=== PATIENT | male | born 1980 | race Caucasian/White ===

== ENCOUNTER 2017-08-08 16:07 | Emergency (ER) | payer MEDICAID, OTHER ==
[2017-08-08 16:59] VITALS: BP 117/83
[2017-08-08] MEDS ORDERED: Ketorolac INJ* 60 MG/2 ML VIAL IM ONE (17:12)
--- NOTE | 2017-08-08 17:43 | RAD ---
HISTORY: Right hip and pelvic pain COMPARISONS: None VIEWS: 3, Frontal view of the pelvis with frontal and frog-leg views of the right hip FINDINGS: BONE DENSITY: Normal. BONES: There is no displaced fracture. JOINTS: There is minimal osteophytic spurring of the femoral head. ALIGNMENT: There is no dislocation. SOFT TISSUES: Unremarkable. OTHER FINDINGS: None. IMPRESSION: NO ACUTE OSSEOUS INJURY. IF SYMPTOMS PERSIST, RECOMMEND REPEAT IMAGING.
--- NOTE | 2017-08-08 19:05 | UC ---
Kierra Hinkle Rebecca, scribed for Seymour Miller MD on 08/08/17 at 1718 . Lower Extremity/Ankle HPI - HPI Summary HPI Summary: Patient is a 36 y/o M who presents to [facility] c/o right inguinal and hip pain. Sx began on Sunday (3 days ago) after doing heavy lifting. Patient reports at this time he felt a pop in the back but that there is no back pain, reporting the only pain is in the inguinal area. Pain is currently moderate, ranked 4/10 and characterized as cramping. Sx aggravated by standing and stretching the back , alleviated by crunching forward. Denies any other complaints. PMHx chronic back pain. - History of Current Complaint Chief Complaint: UCLowerExtremity Stated Complaint: GROIN PAIN Time Seen by Provider: 08/08/17 17:06 Hx Obtained From: Patient Onset/Duration: Lasting Days - 3 days, Still Present Severity Currently: Moderate Pain Intensity: 4 Pain Scale Used: 0-10 Numeric Aggravating Factor(s): Other - Standing and stretching the back Alleviating Factor(s): Other - Crunching forward - Allergies/Home Medications Allergies/Adverse Reactions: Allergies Allergy/AdvReac Type Severity Reaction Status Date / Time MS Amoxicillin [Amoxicillin] Allergy Severe Anaphylatic Verified 08/08/17 16:50 Shock MS Ciprofloxacin [From Cipro] Allergy Severe Hallucinati Verified 08/08/17 16:50 ons MS Penicillins [Penicillins] Allergy Severe Anaphylatic Verified 08/08/17 16:50 Shock PMH/Surg Hx/FS Hx/Imm Hx - Additional Past Medical History Additional PMH: PMHx: Chronic back pain No PMHx: HTN, COPD, asthma, DM - Surgical History Surgical History: Yes Surgery Procedure, Year, and Place: FIXATION OF SCAPHOID FX. RIGHT WRIST. LEFT KNEE SX X2. wisdom teeth - Family History Known Family History: Positive: Unknown - adopted - Social History Alcohol Use: Rare Substance Use Type: None Smoking Status (MU): Former Smoker Have You Smoked in the Last Year: No When Did the Patient Quit Smoking/Using Tobacco: > 3 years ago Review of Systems Constitutional: Negative Skin: Negative Eyes: Negative ENT: Negative Respiratory: Negative Cardiovascular: Negative Gastrointestinal: Negative Genitourinary: Negative Motor: Negative Neurovascular: Negative Musculoskeletal: Other: - Back pain Neurological: Negative Psychological: Negative All Other Systems Reviewed And Are Negative: Yes Physical Exam - Summary Physical Exam Summary: VITAL SIGNS: Reviewed. GENERAL: ~Patient is a well developed and nourished male who is lying comfortable in the stretcher. ~Patient is not in any acute respiratory distress. HEAD AND FACE: Normocephalic EYES: PERRLA, EOMI x 2. EARS: Hearing grossly intact. MOUTH: Oropharynx within normal limits. NECK: Supple, trachea is midline, no adenopathy, no JVD, no carotid bruit. CHEST: Symmetric, no tenderness at palpation LUNGS: Clear to auscultation bilaterally. No wheezing or crackles. CVS: Regular rate and rhythm, S1 and S2 present, no murmurs or gallops appreciated. ABDOMEN: Soft, non-tender. Bowel sounds are normal. No abdominal abnormal pulsations. EXTREMITIES: Full ROM in all major joints, no edema, no cyanosis or clubbing. FROM of the hip with slight tenderness in the inguinal area. There is no inguinal hernia. NEURO: Alert and oriented x 3. No acute neurological deficits. Speech is normal and follows commands. SKIN: Dry and warm Inguinal: Both testicles are descended, penis is uncircumcised with no discharge. Good cremasteric reflex. Triage Information Reviewed: Yes Vital Signs: Initial Vital Signs Temp 99.3 F 08/08/17 16:51 Pulse 75 08/08/17 16:51 Resp 20 08/08/17 16:51 BP 117/83 08/08/17 16:51 Pulse Ox 99 08/08/17 16:51 Vital Signs Reviewed: Yes Diagnostics - Radiology Hip/Pelvis XR Xray Interpretation: No Acute Changes - NO ACUTE OSSEOUS INJURY. IF SYMPTOMS PERSIST, RECOMMEND REPEAT IMAGING. Physician reviewed this radiology report. Radiology Interpretation Completed By: Radiologist Re-Evaluation - Re-Evaluation First Eval Re-Evaluation Time: 17:52 Change: Improved Comment: Discussed XR results and D/C plan with the patient. Answered questions. Lower Extremity Course/Dx - Course Course Of Treatment: Patient is a 36 y/o M who presents to [facility] c/o right inguinal and hip pain. Sx began on Sunday (3 days ago) after doing heavy lifting. Patient reports at this time he felt a pop in the back but that there is no back pain, reporting the only pain is in the inguinal area. Pain is currently moderate, ranked 4/10 and characterized as cramping. Sx aggravated by standing and stretching the back, alleviated by crunching forward. Denies any other complaints. PMHx chronic back pain. Hip/Pelvis XR reveals no acute findings. He was given Toradol which improved sx. Pt will be D/C to home with Dx of inguinal pain. He udnerstands and agrees. Allergies noted. - Differential Dx/Diagnosis Provider Diagnoses: Inguinal pain. Discharge - Sign-Out/Discharge Documenting (check all that apply): Discharge - Discharge Plan Condition: Stable Disposition: HOME Referrals: Pooja Qureshi [Primary Care Provider] - The documentation as recorded by the Kierra gu Rebecca accurately reflects the service I personally performed and the decisions made by me, Seymour Miller MD.
== END 2017-08-08 18:00 | disposition home or self-care (01) ==
LOC: UCEAST 16:07
DX: R10.31 Right lower quadrant pain (principal); M25.551 Pain in right hip; M54.9 Dorsalgia, unspecified; Z88.1 Allergy status to other antibiotic agents; Z88.0 Allergy status to penicillin; Z87.891 Personal history of nicotine dependence
CPT/HCPCS: 96372; 99212; G0463; J1885

== ENCOUNTER 2017-08-12 09:25 | Emergency (ER) | payer SELFPAY ==
[2017-08-12 09:37] VITALS: BP 130/83
--- NOTE | 2017-08-12 10:16 | UC ---
Back Pain HPI - HPI Summary HPI Summary: Pain in right side of back all of the way up his spine, and pain in right groin- --both feel very tight and in spasm - History of Current Complaint Chief Complaint: UCLowerExtremity Stated Complaint: NUMBNESS IN THIGH, HIP PAIN Time Seen by Provider: 08/12/17 09:51 Hx Obtained From: Patient Onset/Duration: Gradual Onset, Lasting Days Timing: Constant Severity Initially: Moderate Severity Currently: Moderate Pain Intensity: 7 Pain Scale Used: 0-10 Numeric Back Pain: Is Diffuse Character: Aching, Spasmodic Aggravating Factor(s): Movement, Lifting, Bending Alleviating Factor(s): Nothing Associated Signs And Symptoms: Positive: Tingling - anterior right thigh - Allergies/Home Medications Allergies/Adverse Reactions: Allergies Allergy/AdvReac Type Severity Reaction Status Date / Time amoxicillin Allergy Anaphylatic Verified 08/12/17 09:39 Shock ciprofloxacin [From Cipro] Allergy Hallucinati Verified 08/12/17 09:39 ons Penicillins Allergy Anaphylatic Verified 08/12/17 09:39 Shock PMH/Surg Hx/FS Hx/Imm Hx Previously Healthy: No - back pain - Surgical History Surgical History: Yes Surgery Procedure, Year, and Place: FIXATION OF SCAPHOID FX. RIGHT WRIST. LEFT KNEE SX X2. wisdom teeth - Family History Known Family History: Positive: Unknown - adopted - Social History Occupation: Employed Full-time - automobile painter Lives: With Family Alcohol Use: Rare Substance Use Type: None Smoking Status (MU): Former Smoker Have You Smoked in the Last Year: No When Did the Patient Quit Smoking/Using Tobacco: > 3 years ago Review of Systems Constitutional: Negative Skin: Negative Eyes: Negative ENT: Negative Respiratory: Negative Cardiovascular: Negative Gastrointestinal: Negative Genitourinary: Negative Motor: Negative Neurovascular: Negative Musculoskeletal: Myalgia - right side of spine and right groin Neurological: Negative Psychological: Negative Is Patient Immunocompromised?: No All Other Systems Reviewed And Are Negative: Yes Physical Exam Triage Information Reviewed: Yes Appearance: Well-Nourished, Ill-Appearing, Pain Distress - mild Vital Signs: Initial Vital Signs Temp 98.8 F 08/12/17 09:31 Pulse 95 08/12/17 09:31 Resp 18 08/12/17 09:31 BP 130/83 08/12/17 09:31 Pulse Ox 100 08/12/17 09:31 Vital Signs Reviewed: Yes Eye Exam: Normal Eyes: Positive: Conjunctiva Clear ENT Exam: Normal ENT: Positive: Normal ENT inspection, Hearing grossly normal. Negative: Trismus , Muffled voice, Hoarse voice Dental Exam: Normal Neck exam: Normal Neck: Positive: Supple, Nontender, No Lymphadenopathy Respiratory Exam: Normal Respiratory: Positive: Chest non-tender, No respiratory distress, No accessory muscle use Cardiovascular Exam: Normal Cardiovascular: Positive: RRR, Pulses Normal, Brisk Capillary Refill Musculoskeletal Exam: Normal Musculoskeletal: Positive: Strength Intact, ROM Intact, No Edema Neurological Exam: Normal Neurological: Positive: Alert, Muscle Tone Normal Psychological Exam: Normal Psychological: Positive: Normal Response To Family Skin Exam: Normal Back Pain Course/Dx - Course Course Of Treatment: add muscle relaxor and follow with pcp for advanced imaging should pain fail to resolve - Differential Dx/Diagnosis Provider Diagnoses: muscle spasm right groin and right back Discharge - Sign-Out/Discharge Documenting (check all that apply): Discharge - Discharge Plan Condition: Stable Disposition: HOME Prescriptions: Cyclobenzaprine TAB* [Flexeril 10 MG TAB*] 10 mg PO TID PRN #30 tab PRN Reason: muscle spasm Patient Education Materials: Muscle Spasm (ED) Forms: *Work Release Referrals: Pooja Qureshi [Primary Care Provider] - 1 Day - Billing Disposition and Condition Condition: STABLE Disposition: HOME
== END 2017-08-12 10:30 | disposition home or self-care (01) ==
LOC: UCEAST 09:25
DX: M62.830 Muscle spasm of back (principal); M62.838 Other muscle spasm; Z88.1 Allergy status to other antibiotic agents; Z88.0 Allergy status to penicillin; Z87.891 Personal history of nicotine dependence
CPT/HCPCS: 99212; G0463

== ENCOUNTER 2018-02-02 20:42 | Emergency (ER) | payer SELFPAY ==
[2018-02-02 20:59] VITALS: BP 123/83
--- NOTE | 2018-02-02 21:06 | UC ---
Hand/Wrist HPI - HPI Summary HPI Summary: 37 y/o male presents to the urgent care c/o Rt wrist pain and swelling since 01/25. 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 He also states about 10 -15 years ago he has a severe fracture of RT wrist and on and of he develops wrist pain. He denies any recent injuries, other than he sometimes has to do heavy lifting or repetitive movement w/ his hands. Pain is 4/10 w/ movement and swelling on the lateral side of the Rt wrist. At times he feels some numbness and tingling over the fingers. Pt denies fever, SOB, chest pain, abdominal pain , N/V/D. Pt is also concern about a bump he feels on top os his scalp which is non painful. Pt has no taken Mediations to alleviate symptoms. - History Of Current Complaint Chief Complaint: UCUpperExtremity Stated Complaint: WRIST INJURY Time Seen by Provider: 02/02/18 21:04 Hx Obtained From: Patient Onset/Duration: Gradual Onset, Lasting Weeks - 1 week, Still Present Severity Initially: Mild Severity Currently: Moderate Pain Intensity: 4 Pain Scale Used: 0-10 Numeric Character Of Pain: Dull, Aching Aggravating Factor(s): Movement, Lifting, Abduction, Pulling Alleviating Factor(s): Rest, Ice, OTC Meds Associated Signs And Symptoms: Positive: Swelling - lateral side of Rt wrist, Numbness/Tingling - at times. Negative: Redness, Bruising, Weakness Related History: Dominant Hand Right - Allergies/Home Medications Allergies/Adverse Reactions: Allergies Allergy/AdvReac Type Severity Reaction Status Date / Time amoxicillin Allergy Anaphylatic Verified 08/12/17 09:39 Shock ciprofloxacin [From Cipro] Allergy Hallucinati Verified 08/12/17 09:39 ons Penicillins Allergy Anaphylatic Verified 08/12/17 09:39 Shock Home Medications: Home Medications Flaxseed 340 gm PO DAILY 02/02/18 [History Confirmed 02/02/18] Potassium Phosphate,Monobasic [Potassium Phosphate] 1 gm PO DAILY 02/02/18 [ History Confirmed 02/02/18] PMH/Surg Hx/FS Hx/Imm Hx Previously Healthy: Yes - Pt denies PMHX - Surgical History Surgical History: Yes Surgery Procedure, Year, and Place: FIXATION OF SCAPHOID FX. RIGHT WRIST. LEFT KNEE SX X2. wisdom teeth - Family History Known Family History: Positive: Unknown - adopted - Social History Occupation: Employed Full-time Lives: With Family Alcohol Use: Occasionally Substance Use Type: None Smoking Status (MU): Former Smoker Have You Smoked in the Last Year: No When Did the Patient Quit Smoking/Using Tobacco: > 3 years ago Review of Systems Constitutional: Negative Skin: Other - Rt wrist swelling on the lateral side Eyes: Negative ENT: Negative Respiratory: Negative Cardiovascular: Negative Gastrointestinal: Negative Genitourinary: Negative Motor: Negative Neurovascular: Negative Musculoskeletal: Decreased ROM - Rt wrist, Other: - Rt wirst pain Neurological: Numbness - on the Rt fingers at times Psychological: Negative Is Patient Immunocompromised?: No All Other Systems Reviewed And Are Negative: Yes Physical Exam - Summary Physical Exam Summary: Vital Signs Reviewed: Yes General: Well-Appearing, No Pain Distress, Well-Nourished male w/o any apparent distress Eyes: Positive: Conjunctiva Clear - PERRLA, EOMI ENT: Positive: Normal ENT inspection, Hearing grossly normal, Pharynx normal, TMs normal, Uvula midline Neck: Positive: Supple, Nontender, No Lymphadenopathy Respiratory: Positive: Chest non-tender, Lungs clear, Normal breath sounds, No respiratory distress Cardiovascular: Positive: RRR, No Murmur, Pulses Normal, Brisk Capillary Refill Abdomen Description: Positive: Nontender, No Organomegaly, Soft. Negative: CVA Tenderness (R), CVA Tenderness (L) Bowel Sounds: Positive: Present Musculoskeletal: Positive: Strength Intact, Other: Neurological Exam: Normal Musculoskeletal: Positive: Wrist: the R wrist is without obvious asymmetry or deformity when compared to the L wrist. No surface trauma, open wounds, moderate swelling on lateral side , no obvious deformity. No overlying erythema or warmth. No bony crepitus. Point tenderness over the thenar eminence and lateral side of wrist. No scaphoid fullness or tenderness to direct palpation or axial load. Decreased ROM due to pain. Motor/sensory function of ulnar, radial, median nerves intact. Ulnar and radial pulses intact. positive Phalen s sign .. Positive Lazarus test. Pt w/ a scar in the ventral side of Rt wrist rpom previous surgery. Psychological Exam: Normal Skin Exam: Normal. positive brown atypical mole in the top of mid scalp w/ irregular boders about 1.0 x1.5 cm in size, non tender to palpation, no discharge seen Triage Information Reviewed: Yes Vital Signs: Initial Vital Signs Temp 98.8 F 02/02/18 20:52 Pulse 83 02/02/18 20:52 Resp 16 02/02/18 20:52 BP 123/83 02/02/18 20:52 Pulse Ox 100 02/02/18 20:52 Hand/Wrist Course/Dx - Course Course Of Treatment: 37 y/o male presents to the urgent care c/o Rt wrist pain and swelling since 01/25/2018. 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 He also states about 10-15 years ago he has a severe fracture of RT wrist and on and of he develops wrist pain. He denies any recent injuries, other than he sometimes has to do heavy lifting or repetitive movement w/ his hands. Pain is 4 /10 w/ movement and swelling on the lateral side of the Rt wrist. At times he feels some numbness and tingling over the fingers. Pt denies fever, SOB, chest pain, abdominal pain, N/V/D. Pt is also concern about a bump he feels on top os his scalp which is non painful. Pt has no taken Mediations to alleviate symptoms. Hx obtained.Pt w/ Phalen test and Fielkestein test positve of Rt wrist and an atypical mole in the top of scalp on exmination. RTwrist X-ray ordered. Impression: There was no fracture, dislocation soft tissue observe. Dr Salamanca agreed w/ Radiology interpretation. Pt will be notifed of final radiology reading. Pts wrist immobilized with a cock up splint. Advised RICE: Rest, Ice, elevation. Pt Rx Ibuporfen PO for pain. There was no neurovascular compromise after splint placed by nurse. Pt given referral w. Orthopedic Dr Dill for further management if not improvment of symptoms. Also given referral w/ Construction Pit Worker Dr Coronel for evaluation and treatment of atypical scalp mole. D/C instrcutions explained. Pt understood and agreed w/ plan of care. - Differential Dx/Diagnosis Differential Diagnosis/HQI/PQRI: Cellulitis, Contusion, Fracture, Sprain, Strain , Tendonitis, Tenosynovitis, Other - carpal tunnel syndrome Provider Diagnoses: 1- Acute RT wrist pain and swelling. 2- Carpel tunnel syndrome. 3- Quervain's tenosynovitis. 4- Atypical scalp mole Discharge - Sign-Out/Discharge Documenting (check all that apply): Patient Departure - D/c home All imaging exams completed and their final reports reviewed: No - Discharge Plan Condition: Stable Disposition: HOME Prescriptions: Ibuprofen TAB* [Motrin TAB* 800 MG] 800 mg PO Q6H PRN #30 tab PRN Reason: Pain Patient Education Materials: Wrist Fracture in Adults (ED), De Quervain Disease (ED), Atypical Mole (ED) Referrals: Pooja Qureshi [Primary Care Provider] - 3 Days Carolyn Coronel [Medical Doctor] - 3 Days Isidro Dill MD [Medical Doctor] - 1 Week Additional Instructions: 1-Please take medications as directed to alleviate pain and swelling. You may be developing Carpal tunnel syndrome and Quervain's tenosynovitis 2-Please immerse your wrist in ice water to alleviate swelling and pain. keep your wrist immobilized with the splint. Avoid heavy lifting or repetitive movements 3- Please f/u with Orthopedic Dr Dill in 1 week is not improvement of symptoms for further evaluation and treatment. 4- Please f/u w/ Construction Pit Worker Dr Coronel for further evaluation and treatment in your scalp mole - Billing Disposition and Condition Condition: STABLE Disposition: Home
--- NOTE | 2018-02-03 10:42 | RAD ---
INDICATION: Right wrist pain and swelling COMPARISON: CT of the wrist March 27, 2013 TECHNIQUE: 3 views right wrist. REPORT: Overlying the distal right radial metaphysis is a faint 1 cm lucency that corresponds to the benign-appearing lesion seen on the March 27, 2013 CT examination. There is a nonunion fracture through the waist of the scaphoid with sclerotic change and subchondral lucencies surrounding the fracture site. IMPRESSION: 1. 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 2. Faintly defined lucency at the distal radial metaphysis corresponds to the same benign appearing bone lesion seen on the prior CT examination. 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 If the patient's symptoms persist, follow-up imaging is recommended. R2
--- NOTE | 2018-02-04 08:56 | UC ---
- EKG/XRAY/CT Xray Comments: Wet read not on chart-follow up appropriate Discharge - Sign-Out/Discharge Documenting (check all that apply): Post-Discharge Follow Up All imaging exams completed and their final reports reviewed: Yes - Discharge Plan Condition: Stable Disposition: HOME Prescriptions: Ibuprofen TAB* [Motrin TAB* 800 MG] 800 mg PO Q6H PRN #30 tab PRN Reason: Pain Patient Education Materials: Wrist Fracture in Adults (ED), De Quervain Disease (ED), Atypical Mole (ED) Referrals: Pooja Qureshi [Primary Care Provider] - 3 Days Carolyn Coronel [Medical Doctor] - 3 Days Isidro Dill MD [Medical Doctor] - 1 Week Additional Instructions: 1-Please take medications as directed to alleviate pain and swelling. You may be developing Carpal tunnel syndrome and Quervain's tenosynovitis 2-Please immerse your wrist in ice water to alleviate swelling and pain. keep your wrist immobilized with the splint. Avoid heavy lifting or repetitive movements 3- Please f/u with Orthopedic Dr Dill in 1 week is not improvement of symptoms for further evaluation and treatment. 4- Please f/u w/ City Carrier Assistant Dr Coronel for further evaluation and treatment in your scalp mole - Billing Disposition and Condition Condition: STABLE Disposition: Home
== END 2018-02-02 21:50 | disposition home or self-care (01) ==
LOC: UCEAST 20:42
DX: G56.01 Carpal tunnel syndrome, right upper limb (principal); M65.4 Radial styloid tenosynovitis [de Quervain]; D22.4 Melanocytic nevi of scalp and neck; Z88.1 Allergy status to other antibiotic agents; Z88.0 Allergy status to penicillin; Z87.891 Personal history of nicotine dependence
CPT/HCPCS: 99212; G0463